=== PATIENT | female | born 1955 | race Caucasian/White ===

== ENCOUNTER → 2018-04-05 10:06 | Outpatient (CLI) | payer BC, SELFPAY ==
--- NOTE | 2018-04-05 10:19 | RAD_ITS ---
STUDY: X-RAY - PELVIS REASON FOR EXAM: Female, 62 years old. Painful hips TECHNIQUE: One view of the pelvis was obtained. COMPARISON: None. FINDINGS: There are no fractures, dislocations or any bone or joint disease. Surgical clips are seen in the lower abdomen and pelvis. RAD/Pelvis 1 or 2 Views IMPRESSION: No fractures. No degenerative changes. Electronically Signed: Artur Jaramillo, at 4:23 EDT Tel , Service support ,
[2018-04-05 12:41] LABS: Erythrocyte Sedimentation Rate 4 mm/hr (0-30)
[2018-04-05 12:43] LABS: Absolute Lymphocyte Count 1.74 X10^3/ul (0.83-4.51); Basophil# 0.02 X10^3/uL; Basophil% 0.3 % (0-1); Eosinophil# 0.21 X10^3/uL; Eosinophils% 2.9 % (0-5); Hematocrit 37.5 % (37-47); Hemoglobin 12.1 g/dl (12.0-15.0); Lymphocyte # 1.74 X10^3/ul (4.0); Lymphocyte % 23.7 % (19-41); Mean Corp Hgb Conc 32.3 g/gl (32-36); Mean Corpuscular Hgb 30.3 pg (27.0-32.0); Mean Platelet Vol. 10.3 fl (6.2-12.0); Monocyte% 5.4 % (0-10); Neutrophil # 4.95 X10^3/uL (2.7-7.7); Neutrophil % 67.3 % (47-70); Platelet Count 316 K/mm3 (150-450); RBC Distribution Width CV 12.8 % (11.6-14.6); RBC Distribution Width SD 43.2 fl (35.1-43.9); Red Blood Count 3.99 M/mm3 (4.2-5.4); White Blood Count 7.4 K/mm3 (4.4-11.0)
[2018-04-05 12:44] LABS: POSITIVE COUNT NO; POSITIVE DIFFERENTIAL NO; POSITIVE MORPHOLOGY NO
[2018-04-05 12:49] LABS: AST(SGOT) 20 U/L (15-37); Alanine Aminotransfer ALT/SGPT 26 U/L (13-56); Albumin, Serum 3.6 g/dL (3.2-5.0); Alkaline Phosphatase 101 U/L (45-117); Anion Gap 7 (5-15); BUN 12 mg/dL (7-18); BUN/Creat Ratio 17.6 RATIO (10-20); Calcium,Total 8.7 mg/dL (8.5-10.1); Chloride 106 mmol/L (98-107); Creatinine, Serum 0.68 mg/dL (0.55-1.02); EST Glomerular Filtration Rate 93 mL/min (>60); Est Glom Filt Rate - Afr Amer 113 mL/min (>60); Globulin 3.7 g/dL (2.2-4.2); Glucose 84 mg/dL (74-106); Potassium 4.4 mmol/L (3.5-5.1); Protein, Total 7.3 g/dL (6.4-8.2); Rheumatoid Factor < 10.0 IU/mL (<15); Sodium Level 142 mmol/L (136-145)
[2018-04-06 15:47] LABS: ANTINUCLEAR ANTIBODIES DIRECT Negative (Negative)
[2018-04-11 15:23] LABS: CCP IgG Antibodies 11 units (0-19); HEPATITIS B SURFACE AG Negative (Negative); HLA B27 Negative (.); Hep B Surface Antibodies Non Reactive (.); Hep C Antibodies 0.1 s/co ratio (0.0-0.9)
== END ==
PROVIDERS: Family Provider Family Medicine; PCP Family Medicine; Visit Provider Internal Medicine Rheumatology
DX: M06.4 Inflammatory polyarthropathy (principal); M79.7 Fibromyalgia; M51.37 Other intervertebral disc degeneration, lumbosacral region
CPT/HCPCS: 36415; 72170; 80053; 81374; 85025; 85652; 86038; 86140; 86200; 86431; 86706; 86803; 87340